=== PATIENT | female | born 1940 | race Caucasian/White ===

== ENCOUNTER → 2017-01-31 | Outpatient (CLI) | payer MEDICARE, OTHER ==
[~2017-01-31] MED LIST: AMIODARONE 200200 MG PO; ASPIRIN 81MG TA81 MG PO; CALCIUM 600 + M1 TAB PO; DIGITEK0.125 MG PO; FISH OIL O1600 MG/5 PO; LOVASTATIN20 MG PO; MACROBID100 M3 PO; MECLIZINE25 MG PO; NIACIN500 M3 PO; PLAVIX75 MG PO; ROCEPHIN 1 GM VI1 GM IV; ST. JOSEPH81 M1 PO
--- NOTE | 2017-01-31 11:37 | RADIOLOGY REPORT PS360 ---
CHEST(2 VIEWS-NOT PORTABLE) HISTORY: COUGH ORDERING PHYSICIAN: Juan Gruber MD PATIENT AGE: 76 years COMPARISON: 09/11/2014 FINDINGS: The cardiomediastinal silhouette and pulmonary vascularity are within normal limits. There is chronic coarsening of the bronchovascular markings. No lobar consolidation or collapse.. Degenerative change thoracic spine. 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 No change with no acute finding
== END ==
LOC: RAD 10:43
DX: R05 Cough (principal)